=== PATIENT | male | born 1980 | race Caucasian/White ===

== ENCOUNTER → 2019-06-30 09:23 | Outpatient (BNVA) | payer SELFPAY | PROVIDERS: Family Provider Nurse Practitioner Family; Visit Provider Nurse Practitioner Family | DX: R05 Cough (principal); F41.9 Anxiety disorder, unspecified | CPT/HCPCS: 71046; 85025 ==

== ENCOUNTER → 2019-07-07 14:06 | Outpatient (BNVA) | payer SELFPAY | PROVIDERS: Family Provider Nurse Practitioner Family; Visit Provider Nurse Practitioner Family | DX: R05 Cough (principal) | CPT/HCPCS: 71046; 80053; 85025; 87400 ==

== ENCOUNTER 2019-07-08 09:51 | Outpatient (CLI) | payer OTHER, SELFPAY ==
--- NOTE | 2019-07-08 10:30 | CT_ITS ---
WS: [id number] CT CHEST TECHNIQUE: Contrast enhanced CT of the chest with coronal and sagittal reformatted images. CLINICAL INFORMATION: persistent worsening cough COMPARISON: None. DLP: 1016.[address] scans at [facility] use at least one of these dose optimization techniques: automat ed exposure control; mA and/or kV adjustment per patient size (includes targeted exams where dose is matched to clinical indication); or iterative reconstruction. FINDINGS: Lungs are well aerated. No acute pulmonary infiltrates. No consolidation or pleural fluid. No evidenc e of pneumonia. Tiny pulmonary nodule right upper lobe measuring 3 mm. No other suspicious pulmonary parenchymal opacities. A few small nodules in the thyroid gland measuring up to 4 mm. Aberrant right subclavian artery. No m ediastinal or hilar lymphadenopathy. Tiny gallstones in gallbladder. Tiny esophageal hiatal hernia. Adrenal glands are normal. Lobulated l ow-attenuation lesion in the spleen measuring 3.9 cm likely represents splenic cyst or hemangioma. CT/CT chest w con* [id number] IMPRESSION: 1. Lungs are well aerated. No acute pulmonary infiltrates. No evidence of pneu monia. 2. Tiny noncalcified pulmonary nodule right upper lobe measuring 3.2 mm. Recom mend 12 month follow-up. 3. No mediastinal or hilar lymphadenopathy. 4. A few tiny thyroid nodules. This can be followed up with ultrasound on an e lective basis. 5. Cholelithiasis. 6. Lobulated splenic lesion measuring 3.9 cm likely splenic cyst or cavernous hemangioma. 7. Incidental aberrant right subclavian artery.
[2019-07-08] MEDS: iohexol 300 mg/mL 100 mL Btl IV (10:47)
== END 2019-07-08 09:52 | disposition home or self-care (01) ==
PROVIDERS: Family Provider Nurse Practitioner Family; PCP Nurse Practitioner Family; Visit Provider Nurse Practitioner Family
DX: J98.8 Other specified respiratory disorders (principal); R05 Cough; R91.8 Other nonspecific abnormal finding of lung field; E04.1 Nontoxic single thyroid nodule; K80.20 Calculus of gallbladder without cholecystitis without obstruction; D73.89 Other diseases of spleen; Q27.8 Other specified congenital malformations of peripheral vascular system
CPT/HCPCS: 71260

== ENCOUNTER → 2019-07-12 10:17 | Outpatient (BNVA) | payer OTHER, SELFPAY | PROVIDERS: Family Provider Nurse Practitioner Family; PCP Nurse Practitioner Family; Visit Provider Nurse Practitioner Family | DX: E04.1 Nontoxic single thyroid nodule (principal); R91.1 Solitary pulmonary nodule; D73.9 Disease of spleen, unspecified; J98.8 Other specified respiratory disorders; Q27.8 Other specified congenital malformations of peripheral vascular system | CPT/HCPCS: 84439; 84443; 84481 ==

== ENCOUNTER 2019-07-20 10:26 | Outpatient (CLI) | payer OTHER, SELFPAY ==
--- NOTE | 2019-07-20 17:41 | ONC CON_ITS ---
Dr. Bae New Patient Note Patient: Norris Srivastava Unit #: [id number]: 1980 Dicatated By: Chemo Bae M.D.Date of Visit: Jul 20, 2019 Onc MED New Patient/Consult Referring Physician: Derrek Paz Chief Complaint: Splenic lesion. History of Present Illness: This is a 39-year-old man with CT evidence of a splenic lesion, felt to be most likely cyst or cavernous hemangioma. He had presented with complaint of persistent cough. It had started in April. Initially it was nonproductive. It has tended to get worse with activity. He has had some improvement with albuterol by pulmonary nebulizer or inhaler, though the benefit has been short-term. His initial evaluation included negative chest x-rays on 06/29 and 07/07/2019. He then had further evaluation with chest CT on 07/08/2019. It showed no acute pulmonary infiltrates. A tiny noncalcified pulmonary nodule in the right upper lobe measured 3.2 mm. There was no mediastinal or hilar adenopathy noted. There were a few tiny thyroid nodules. A lobulated splenic lesion measuring 3.9 cm was thought to most likely represent a splenic cyst or cavernous hemangioma. His laboratory studies from 07/07/2019 included CBC showing elevated hemoglobin at 17.0 g with hematocrit 50.7%. The white blood cell count was 8600 with the differential showing 66% neutrophils, 20 % lymphocytes, and 7% monocytes, and 1% eosinophils. The platelet count was normal at 341,000. Comprehensive metabolic profile was unremarkable. The thyroid profile showed slightly elevated TSH at 4.33 ???IU/mL with normal free T4 and free T3 levels. He complains that his been feeling tired for the last couple of months and that his energy is way down. He is able to do light work. His ECOG score is 1. He has good appetite. He had lost a little weight, but recently it has been stable. He has not had fever or night sweats. He continues to have cough and he also has shortness of breath with exertion. He has not been having chest pain. He does not complain of nausea. He has just very occasional heartburn. His bowels recently have been loose and more frequent. He has no complaints. He has some pain in the lower back and he also has pain in his left knee. He tends to have stiffness when he first gets up in the morning. He does not complain of headache or dizziness. He has some intermittent tingling in his legs. It tends to be positional. Past Medical History: His medical history includes anxiety and a history of mild exercise induced asthma in childhood. Past Surgical History: His surgical/procedural history includes appendectomy and excision of ganglion cyst from the left wrist. Medications: Albuterol Sulfate HFA 1 Inhalation (of 108 (90 base) mcg/act) Aerosol, solution Inhalation b.i.d., PARoxetine HCl 1 Tablet (of 10 mg) Oral daily, Robitussin Mucus+Chest Congest 1 Capsule Oral b.i.d. Allergies: No Known Allergies. Social History: Mr. Srivastava is . 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 He had smoked in the past, but only for 2 years. He quit 20 years ago. He has some alcohol use estimated 10-12 beers per week. Family History: Both parents and one brother are in good health. A paternal uncle had colon cancer and another paternal uncle had pancreatic cancer. He is not aware of any history of asthma or COPD in the family. Review Of Symptoms: Constitutional - His energy level is very low. He is able to do some light outside work. His appetite is good and weight recently has been stable. No fever, chills, hot flashes, or night sweats. ECOG score is 1, Eyes - No change in vision, ENMT - No hearing loss or tinnitus. No sinus congestion/drainage. No mouth sores. No sore throat or difficulty swallowing, Hematologic/Lymphatic - No abnormal bruising or bleeding, Respiratory - He has shortness of breath with exertion. He has had a cough since April. He has been using breathing treaments which help for a short time. No pleuritic pain or hemoptysis, Cardiovascular - No angina pain. No palpitations, Gastrointestinal - No nausea or vomiting. No heartburn or acid reflux. No diarrhea or constipation. No blood in the stool or black stools, Genitourinary (M) - No dysuria or hematuria. No urinary frequency. No urgency or incontinence, Musculoskeletal - He has pain in his left knee and in his lower back, Integumentary - No skin complications, Neurologic - No headache or dizziness. He has occasional tingling in his legs, Psychiatric - His has anxiety that is well managed with Paxil. No depression. No insomnia. Vital Signs: Performed on Jul 20, 2019 10:38: 0, 49.21 (HIGH), 1.90 sq.m, 57.00 in, 99 %, 83 /min, 24 /min, 138/93 mm(hg), 98.8 F, and 227.4 lbs (HIGH). Physical Examination: Constitutional - He appears to be in good general health, Eyes - Sclerae nonicteric. Conjunctivae clear, ENMT - No lesions noted in the oral cavity, Neck - No mass or thyromegaly, Hematologic/Lymphatic - No cervical, clavicular, or axillary adenopathy, Respiratory - Lungs show slightly coarse breath sounds bilaterally. There is no wheezing, Cardiovascular - Heart rhythm is regular. There is no murmur, gallop, or rub noted, Abdomen - Soft and non-tender. Liver is not enlarged. The spleen is not palpable. There is no abdominal mass or ascites noted and there is no inguinal adenopathy, Back/Spine - No spine or CVA tenderness noted, Extremities - No edema. Posterior tibial pulses are palpable bilaterally, Integumentary - No rashes. No suspicious skin lesions noted, Neurologic - No focal neurologic deficits noted. Impression: 1. Patient with CT evidence of 3.9 cm splenic lesion which appears consistent with cyst or cavernous hemangioma. 2. He has elevated hemoglobin/hematocrit levels. For a non-smoker in this age group, this would most likely be due to decreased plasma volume, i.e. stress erythrocytosis . 3. He has persistent cough. I suspect this is due to asthma. 4. There is also CT evidence of a small noncalcified right upper lobe pulmonary nodule. Follow-up was recommended. 5. He has significant fatigue, and he has a mildly elevated TSH level. Plan: The laboratory findings and CT findings were reviewed with the patient. We discussed the clinical implications. I will plan to review the CT scan with the radiologist, and the splenic lesion will likely require follow-up, but I doubt it will be of clinical significance. I do want to obtain additional laboratory studies to include a repeat CBC and comprehensive metabolic profile along with LDH level, sed rate, and erythropoietin level. I also will repeat a TSH level and I will review the blood smear. He will start treatment for hypothyroidism as indicated. I will otherwise just plan a follow-up CT in 6 months to recheck the splenic lesion and the pulmonary nodule. In the meantime, I am going to have him try Advair for the cough. If it is not improving, I think would be best to have him see a brick wheeler. Signed By: Chemo Bae M.D. <<Signature on File>>
[2019-07-22 09:35] LABS: Alanine Aminotransferase 32 U/L (0-41); Albumin Level 4.9 g/dL (3.5-5.2); Alkaline Phosphatase 69 IU/L (40-130); Anion Gap 23.5 (5-19); Aspartate Amino Transferase 17 U/L (0-40); Blood Urea Nitrogen 14 mg/dL (6-20); Calcium 10.6 mg/dL (8.5-10.5); Carbon Dioxide 22 mmol/L (22-29); Chloride 102 mmol/L (98-107); Globulin 2.6 g/dL (1.3-4.6); Glomerular Filtration Rate 75.3 mL/min (90-130); Glucose 79 mg/dL (65-115); Osmolality Calculated 291 mOsm/kg (285-295); Potassium 4.5 mmol/L (3.5-5.1); Sodium 143 mmol/L (136-145); Total Bilirubin 0.3 mg/dL (0.15-1.2); Total Protein 7.5 g/dL (6.6-8.7)
== END 2019-07-20 10:27 | disposition home or self-care (01) ==
LOC: ONCMED 10:27
PROVIDERS: Family Provider Nurse Practitioner Family; PCP Nurse Practitioner Family; Referring Provider Nurse Practitioner Family; Visit Provider Internal Medicine Medical Oncology
DX: D73.9 Disease of spleen, unspecified (principal); R91.8 Other nonspecific abnormal finding of lung field; F41.9 Anxiety disorder, unspecified; F10.20 Alcohol dependence, uncomplicated; J45.909 Unspecified asthma, uncomplicated; R53.83 Other fatigue; E03.9 Hypothyroidism, unspecified; Z87.891 Personal history of nicotine dependence
CPT/HCPCS: 80053; 80500; 99204

== ENCOUNTER → 2019-07-21 09:31 | Outpatient (BNVA) | payer OTHER, SELFPAY | PROVIDERS: Family Provider Nurse Practitioner Family; PCP Nurse Practitioner Family; Visit Provider Internal Medicine Medical Oncology | DX: E04.1 Nontoxic single thyroid nodule (principal); D75.1 Secondary polycythemia; D73.9 Disease of spleen, unspecified | CPT/HCPCS: 82668; 83615; 84443; 85025; 85651 ==

== ENCOUNTER → 2020-08-03 10:30 | Outpatient (BNVA) | payer OTHER, SELFPAY | PROVIDERS: Family Provider Nurse Practitioner Family; PCP Nurse Practitioner Family; Visit Provider Nurse Practitioner Family | DX: R53.83 Other fatigue (principal); F41.9 Anxiety disorder, unspecified; G47.10 Hypersomnia, unspecified; Z13.6 Encounter for screening for cardiovascular disorders; E04.1 Nontoxic single thyroid nodule; R53.82 Chronic fatigue, unspecified | CPT/HCPCS: 80053; 80061; 83721; 84403; 84443; 85025 ==

== ENCOUNTER 2020-10-15 06:00 | Outpatient (CLI) | payer OTHER, SELFPAY | END 2020-10-15 06:01 | disposition home or self-care (01) | LOC: LAB 08-29 14:38 | PROVIDERS: PCP Nurse Practitioner Family; Visit Provider Nurse Practitioner Family | DX: E78.5 Hyperlipidemia, unspecified (principal) | CPT/HCPCS: 80053; 80061; 84443; 85025 ==

== ENCOUNTER → 2021-07-16 09:28 | Outpatient (BNVA) | payer OTHER, SELFPAY | PROVIDERS: PCP Nurse Practitioner Family; Visit Provider Nurse Practitioner Family | DX: F41.9 Anxiety disorder, unspecified (principal); F52.4 Premature ejaculation; E78.5 Hyperlipidemia, unspecified; M25.512 Pain in left shoulder; G89.29 Other chronic pain | CPT/HCPCS: 73030; 80053; 80061; 84443; 85025 ==

== ENCOUNTER → 2022-02-05 09:05 | Outpatient (BNVA) | payer OTHER, SELFPAY | PROVIDERS: PCP Nurse Practitioner Family; Visit Provider Nurse Practitioner Family | DX: F41.9 Anxiety disorder, unspecified (principal); F52.4 Premature ejaculation; M25.50 Pain in unspecified joint; E78.5 Hyperlipidemia, unspecified; E04.1 Nontoxic single thyroid nodule; R91.1 Solitary pulmonary nodule; D73.4 Cyst of spleen | CPT/HCPCS: 80053; 80061; 84443; 85025; 85651; 86431 ==

== ENCOUNTER → 2023-02-25 15:17 | Outpatient (BNVA) | payer OTHER, SELFPAY | PROVIDERS: PCP Nurse Practitioner Family; Visit Provider Nurse Practitioner Family | DX: F41.9 Anxiety disorder, unspecified (principal); E78.5 Hyperlipidemia, unspecified; F52.4 Premature ejaculation | CPT/HCPCS: 80053; 80061; 84443; 85025 ==

== ENCOUNTER 2023-04-06 14:39 | Outpatient (CLI) | payer BC, SELFPAY ==
--- NOTE | 2023-04-06 15:15 | MR_ITS ---
WS: [id number] MRI RIGHT SHOULDER HISTORY: M25.511 - Pain in right shoulder COMPARISON: None available. TECHNIQUE: Multiplanar sequences of the shoulder joint are submitted. 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 Mild subacromial impingement up on the distal supraspinatus. Very minimal fluid in the subacromial and subdeltoid bursa. Biceps tendo n abnormal location. There is at least a split tear and partial subluxation of the biceps tendon in t he bicipital groove. Increased fluid in the biceps tendon sheath. No os acromion. No rotator cuff muscle atrophy or edema. Abnormal subscapularis tendon. There is a split tear in a la rge portion of the distal subscapularis tendon. The very distal tendon is poorly visualized and there is significant coracohumeral encroachment. At the insertion site of the subscapularis tendon with ov erlapping of the anterior supraspinatus tendon there is a large insertion site tear. This tear may ov erlap between the subscapularis and supraspinatus tendons. It is difficult to determine and different iate between the biceps tendon and the subscapularis tendon through the coracohumeral interval. Subchondral cystic changes in the humeral head. No labral tear. IMPRESSION: 1. 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 2. Mild subacromial impingement. 3. Abnormal biceps tendon and subscapularis tendons. 4. Split tear in the biceps tendon and also the subscapularis tendons distally. Poor distinction betw een the 2 tendons distally and through the coracohumeral interval. There are tears involving both ten dons. 5. Partial subluxation of the biceps tendon and tenosynovitis. 6. Insertion site tear of the subscapularis tendon with the overlapping of the anterior supraspinatus tendon.
== END 2023-04-06 14:40 | disposition home or self-care (01) ==
LOC: RAD 14:39
PROVIDERS: PCP Nurse Practitioner Family; Visit Provider Nurse Practitioner Family
DX: S46.211A Strain of muscle, fascia and tendon of other parts of biceps, right arm, initial encounter (principal); S46.811A Strain of other muscles, fascia and tendons at shoulder and upper arm level, right arm, initial encounter; X58.XXXA Exposure to other specified factors, initial encounter; M19.011 Primary osteoarthritis, right shoulder; M25.611 Stiffness of right shoulder, not elsewhere classified; M75.41 Impingement syndrome of right shoulder; M65.811 Other synovitis and tenosynovitis, right shoulder; M75.101 Unspecified rotator cuff tear or rupture of right shoulder, not specified as traumatic
CPT/HCPCS: 73221

== ENCOUNTER 2023-06-25 10:43 | Day surgery (SDC) | payer BC, SELFPAY ==
[2023-06-25] VITALS (7 sets, daily range): BP systolic 104–132; BP diastolic 67–86; PULSE 50–80; RESP 16–18; TEMP 36.1–36.3; O2SAT 94–98; BMI 36.0
--- NOTE | 2023-06-25 11:02 | W.PM.OPSUD ---
Surgery/Procedure H&P Update DATE OF PROCEDURE: June 25, 2023 DATE H&P PERFORMED: 06/02/23 H&P UPDATE INFORMATION: I have reviewed H&P completed within last 30 days, I have examined patient prior to procedure and No changes to prior documentation CHANGES TO PREVIOUS DOCUMENTATION: Reviewed the ins and outs of procedure the risk benefits complication alternatives of surgery he understands with bicep tendon work could have cramping and possible Alberto deformity. We talked about expectations postoperatively understanding his risk of surgery elects to proceed all questions been answered at this time. PREOP DIAGNOSIS: Right shoulder biceps tendon tear subscapularis tendon tear AC joint arthri PRIMARY INDICATION FOR PROCEDURE: Right shoulder bicep tendon tear, subscapularis tendon tear, AC joint arthritis, subacromial impingement PLANNED PROCEDURE: Operation Date: 06/25/23 12:15 Proposed Procedures p Shoulder Arthroscopy(Right) - Titi Lopes, DO s Bicep Tenodesis Tendon Repair Bicep(Right) - Titi Lopes, DO s Subacromial Decompression(Right) - Titi Lopes DO s Rotator Cuff Repair - Arthroscopy(Right) - Titi Lopes DO s AC Joint Resection(Right) - Titi Lopes, DO
[2023-06-25] MEDS: ketorolac 30 mg/mL INJ IVP (11:14)
[2023-06-25] MEDS: sodium chloride 0.9% 1,000 ML 30 ML IV (11:15)
[2023-06-25] MEDS: acetaminophen 1,000 MG/100 ML PIGGYBACK 400 MG IV (11:15)
[2023-06-25] MEDS: scopolamine 1.5 Patch 1 PATCH TRANSDERMA (11:15)
[2023-06-25] MEDS: midazolam 1 mg/mL INJ 2 mL 2 MG IVP (12:08)
[2023-06-25] MEDS: ceFAZolin 2,000 MG in sodium chloride 0.9% (plus) 50 ML 100 MG IV (13:02)
[2023-06-25] MEDS: EPINEPHrine 1 mg/mL INJ 2 MG XX (14:05)
[2023-06-25] MEDS: fentaNYL 50 mcg/mL INJ 2mL IVP (15:40)
[2023-06-25] MEDS: HYDROcodone-acetaminophen 5-325 mg Tablet 1 TAB PO (16:29)
--- NOTE | 2023-06-25 17:11 | W.PM.BPON ---
Date of Procedure: 06/25/2023 Surgeon: Titi Lopes DO Occupational Physician(s): MIGUEL Clark Procedure(s) performed: Right shoulder diagnostic and surgical arthroscopy with biceps tenodesis Right shoulder diagnostic and surgical arthroscopy with subscapularis tendon repair Right shoulder diagnostic and surgical arthroscopy with labral debridement Right shoulder diagnostic and surgical arthroscopy with acromioclavicular joint resection (distal clavicle excision) Right shoulder diagnostic and surgical arthroscopy with subacromial decompression (bursectomy and acromioplasty) Right shoulder diagnostic and surgical arthroscopy with rotator cuff repair (medium) Findings of the procedure(s): Patient was found to have longitudinal split bicep tendon tear as well as superior labral tearing and circumferential tearing of the labrum also had a subscapularis tendon tear as well as supraspinatus rotator cuff tendon tear patient underwent procedure as planned and procedures as dictated above no issues or complications with the procedure. Patient tolerated this well was taken to PACU in stable condition. Estimated blood loss: 10 mL Specimen(s) removed: None Post-operative diagnosis: Right shoulder biceps tendon tear, SLAP tear, subscapularis tendon tear, AC joint arthritis, labral tearing, subacromial impingement, rotator cuff tear
--- NOTE | 2023-06-25 17:15 | P.OP_ITS ---
Operative Report Date of procedure: June 25, 2023 Surgeon: Titi Lopes DO Procedure: Procedure: Preoperative diagnosis: Right shoulder bicep tendon tear, subscapularis tendon tear, AC joint arthritis, subacromial impingement Post-op diagnosis: Right shoulder labral tearing Right shoulder long head bicep tendon tear Right shoulder subscapularis tendon tear Right shoulder supraspinatus tendon tear Right shoulder AC joint arthritis Right shoulder subacromial bursitis/impingement Procedure done: Right shoulder diagnostic and surgical arthroscopy with biceps tenodesis Right shoulder diagnostic and surgical arthroscopy with subscapularis tendon repair Right shoulder diagnostic and surgical arthroscopy with labral debridement Right shoulder diagnostic and surgical arthroscopy with acromioclavicular joint resection (distal clavicle excision) Right shoulder diagnostic and surgical arthroscopy with subacromial decompression (bursectomy and acromioplasty) Right shoulder diagnostic and surgical arthroscopy with supraspinatus rotator cuff repair (medium) Surgeon: Titi Lopes DO Estimated blood loss: 10mL IV fluids: See anesthesia record Implants: Arthrex 4.75 swivel lock x3 Arthrex scorpion and suture tape Complications: None Condition: stable Disposition: same day Brief History: Patient been seen and worked up in the outpatient setting for right shoulder pain.? Pt had an MRI which showed findings below.? Patient's failed conservative treatment. We talked about treatment options far as nonoperative and operative intervention..? We talked about risk benefits complication alternatives surgical nonsurgical treatment options.? Understanding risk of surgery pt agrees to proceed with surgical intervention.? All questions have been answered at this time.? Patient elects proceed with surgery and consent obtained in office. IMPRESSION: 1. 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 2. Mild subacromial impingement. 3. Abnormal biceps tendon and subscapularis tendons. 4. Split tear in the biceps tendon and also the subscapularis tendons distally. Poor distinction between the 2 tendons distally and through the coracohumeral interval. There are tears involving both tendons. 5. Partial subluxation of the biceps tendon and tenosynovitis. 6. Insertion site tear of the subscapularis tendon with the overlapping of the anterior supraspinatus tendon. Procedure: Patient seen evaluated in the preoperative holding area.? Consent reviewed and signed with patient.? Once again reviewed patient's MRI results as well as? planned surgical intervention.? Correct extremity marked.? Patient seen evaluated by anesthesia department received regional anesthesia.? Once ready for surgery was taken back to the operative suite.? Patient then subsequently underwent anesthesia per the anesthesia department was transported onto the OR table.? Patient was then placed into a lateral decubitus position with a beanbag and was appropriately secured to the bed.? All bony prominences well-padded.? Patient then had the right upper extremity was then prepped and draped in standard orthopedic fashion.? Patient received appropriate preoperative antibiotics.? Final timeout performed. The right upper extremity was then held in hanging from traction utilizing sterile technique.? Next started with standard diagnostic and surgical arthroscopy with posterior portal position introduced arthroscope into the glenohumeral joint.? Visualized the glenohumeral joint I then introduced a spinal needle within the rotator?cuff?interval to confirm appropriate anterior portal placement.? Once this was confirmed I then made my small incision and then introduced my arthroscopic shaver into the glenohumeral joint.? After thorough debridement, patient was confirmed to having a long head of biceps tendon tear. After flushing the joint fluid, was clearly evident patient had biceps tendon tearing as well as Superior labral tear and longitudinal split of the tear in the intertubercular groove. Patient had appreciable unstable biceps anchor most pronounced in the superior labrum. Given there appears to be healthy intra- articular tendon plan was for an intra-articular biceps tenodesis at the superior portion as it enters the intertubercular groove. Thermal wand introduced into the rotator interval. I then release of the rotator interval to have appropriate visualization and the ability to perform biceps tenodesis. At this point I established a purple passport cannula which was introduced. Next I performed an Arthrex loop and tap biceps tenodesis. Passer was then made around the tendon luggage tag stitch around and then thru the tendon and around twice I then utilized a thermal wand to release the biceps tendon at the anchor to perform with tenotomy. Next I evaluated the subscapularis tendon which was significant tearing of the subscapularis tendon as a result elected for subscapularis tendon repair. I then subsequently introduced an Arthrex scorpion loaded with a link suture. I subsequently had initial purchase of the majority of the upper third of the subscapularis. Prior to this I did utilize thermal wand to open up the rotator interval as well as to bluntly release any adhesions off the anterior aspect of the subscapularis tendon for appropriate isolated capture of just the subscapularis. Once again I subsequently luggage tag with suture and made 2 more additional passes to the subscapularis tendon had excellent fixation. I then loaded with suture from both the long head of the bicep tendon as well as subscapularis tendon suture to perform my repair into 1 anchor and these were subsequently loaded onto an Arthrex 4.75 swivel lock suture anchor. A punch was then placed in appropriate position at the entry point into the intertubercular groove just superior to the subscapularis tendon. Punch was then introduced to the appropriate depth. The suture loaded on the swivel lock was then advanced held under appropriate tension and shoulder lock anchor was then advanced and had excellent fixation. Excess suture was then cut biceps tenodesis and subscapularis tendon repair was complete. I then utilized a thermal wand to seal the edges of the superior labrum. ?Next there was significant labral tearing circumferential.? ? I then subsequently utilized a a arthroscopic shaver and thermal wand to perform a labral debridement.? This point time I then visualized the glenohumeral joint.? The glenohumeral joint was found to have grade 1-2? chondromalacia throughout.? Infrapatellar pouch was free of loose bodies from viewing the posterior portal.? Next a visualized the rotator?cuff?superiorly and there was found to be a tear in the supraspinatus tendon.? I utilized a spinal needle to otilia this location.?? This completed my work within the glenohumeral joint all fluid was suctioned free of the joint.? ?Next I reintroduced the arthroscope posteriorly.? And went to the subacromial space.? I established my lateral working portal at the site of which my spinal needle was marking of the rotator?cuff?tear.? Thermal wand was then introduced laterally and then I subsequently performed extensive bursectomy of the subacromial space.? Patient had a large anterior bone spur.? At this point time I proceeded with my AC joint resection thermal wand was used and track to the anterior edge of the acromion and then tracked all the way to the AC joint.? Once identified the AC joint this was very arthritic in nature.? Thermal wand was placed anteriorly to establish appropriate plane for AC joint resection.? Once appropriate margins and anterior inferior and anterior capsule was released I then introduced arthroscopic shaver and a bur and performed AC joint resection of both the acromion to cope plane at the AC joint and a distal clavicle resection was then performed totaling 1 cm in size and was confirmed.? This completed my AC joint resection and I then introduced the arthroscopic shaver laterally while continuing to view posteriorly.? I then performed an acromioplasty to complete my subacromial decompression prior to fixing the rotator?cuff?tear.? Next the arthroscopic shaver was then used previous spinal needle spot that is marked the small hole in the rotator?cuff?this was consistent with a small full- thickness tear.? Tear was medium in size requiring a single medial row and a single lateral row anchor repair. I made an accessory portal utilizing a spinal needle to have a man's angle directly perpendicular to the medial footprint. I subsequently prepped and decorticated the rotator cuff footprint with a ring curette as well as with arthroscopic shaver. I then subsequently punched and placed a 4.75 swivel lock loaded with 6 Arthrex suture tapes. These were subsequently left out of the accessory portal and then subsequently retrieved and passed for individual passes of the suture tape. These were then loaded into my lateral row anchor with a single 4.75 swivel lock. I cleared off the lateral aspect of the greater tuberosity and then subsequently placed by punch and then loaded the 4.75 swivel lock with the 4 rotator cuff suture tapes appropriately tensioned these with care not to over tension and then subsequently malleted the eyelet with appropriate tension maintained and then subsequently secured the 4.75 swivel lock with excellent purchase and fixation. Sutures were then cut with an arthroscopic suture cutter and subsequently evaluated the rotator?cuff?repair.??Repair?was found to be satisfactory shoulder was taken through range of motion and the?repair?moved as a unit with no evidence of loss of fixation. ?I then switched the arthroscope to the lateral portal to confirm this tension- free?repair.? I took the shoulder through range of motion and the rotator?cuff?repair?was stable and moved as a unit. ?Next I then introduced the arthroscopic shaver posteriorly to complete my subacromial decompression appropriate complaining all the way up to the lateral edge of the acromion. This completed the surgery.? All fluid was suctioned from the shoulder.? All instruments were removed.? The lateral incision was then closed with nylon stitches.? As well as the portal sites closed with portal nylon stitches.? Xeroform 4 x 4's ABD and tape was then applied to the right shoulder and was placed into a shoulder abduction pillow sling for rotator?cuff?repair.? Patient was then awakened from anesthesia and then taken back to PACU in stable condition.? Patient tolerated procedure without any issues. Disposition: Patient taken back in stable condition recovering well.? Dressings on in place clean dry and intact.? Will be nonweightbearing to the right upper extremity.? Follow rotator?cuff?repair?protocol.? Patient to follow-up with me in the office in 2 weeks.? Patient will receive appropriate discharge instruction as well as pain medication postoperatively.? All questions answered.? We will contact the office for any questions or concerns.
--- NOTE | 2023-06-25 20:18 | ANE.PACU2 ---
Inpatient post-anesthesia follow up: Airway intact: Yes Vital signs: Temperature 97.4 F Pulse Rate 58 Respiratory Rate 18 Blood Pressure 121/84 Pulse Oximetry 98 Oxygen Delivery Me thod Room Air Oxygen Flow Rate Fraction of Inspir ed Oxygen Hydration adequate: Yes Nausea and vomiting: No Pain level: 2 Mental status: Baseline
== END 2023-06-25 16:45 | disposition home or self-care (01) ==
PROVIDERS: PCP Nurse Practitioner Family; Visit Provider Student in an Organized Health Care Education/Training Program
PROC: (CPT 29805; principal; 2023-06-25 12:15)
PROC: (CPT 23430; 2023-06-25 12:15)
PROC: (CPT 29826; 2023-06-25 12:15)
PROC: (CPT 29827; 2023-06-25 12:15)
PROC: 0RSG0ZZ Reposition Right Acromioclavicular Joint, Open Approach (ICD-10-PCS; CPT 29823; 2023-06-25 12:15)
DX: S46.111A Strain of muscle, fascia and tendon of long head of biceps, right arm, initial encounter (principal); S46.911A Strain of unspecified muscle, fascia and tendon at shoulder and upper arm level, right arm, initial encounter; X58.XXXA Exposure to other specified factors, initial encounter; M19.011 Primary osteoarthritis, right shoulder; M25.811 Other specified joint disorders, right shoulder
CPT/HCPCS: 29823; 29826; 29827; 29828; C1713; J0131; J0171; J0690; J1100; J1885; J2250; J2405; J2704; J2710; J2795; J3010; J3490; J7030

== ENCOUNTER 2023-08-24 06:00 | Outpatient (RCR) | payer BC, SELFPAY | END 2023-09-18 23:59 | disposition home or self-care (01) | LOC: APT 06:00 | PROVIDERS: Visit Provider Physician Assistant | DX: Z98.890 Other specified postprocedural states (principal) | CPT/HCPCS: 97110; 97140; 97161 ==

== ENCOUNTER 2023-09-19 06:00 | Outpatient (RCR) | payer BC, SELFPAY | END 2023-10-18 23:59 | disposition home or self-care (01) | LOC: APT 06:00 | PROVIDERS: Visit Provider Physician Assistant | DX: Z98.890 Other specified postprocedural states (principal) | CPT/HCPCS: 97110; 97140; 97530 ==

== ENCOUNTER 2023-10-19 06:00 | Outpatient (RCR) | payer BC, SELFPAY | END 2023-11-18 23:59 | disposition home or self-care (01) | LOC: APT 06:00 | PROVIDERS: Visit Provider Physician Assistant | DX: Z98.890 Other specified postprocedural states (principal) | CPT/HCPCS: 97110 ==

== ENCOUNTER → 2025-03-09 08:15 | Outpatient (BNVA) | payer BC, SELFPAY | PROVIDERS: PCP Family Medicine; Visit Provider Orthopaedic Surgery | DX: M54.9 Dorsalgia, unspecified (principal); M54.31 Sciatica, right side; M54.32 Sciatica, left side; G89.29 Other chronic pain | CPT/HCPCS: 72110 ==